=== PATIENT | male | born 1995 | race Caucasian/White ===

== ENCOUNTER 2023-10-16 13:56 | Emergency (ER) | payer OTHER ==
[2023-10-16] MEDS: methylPREDNISolone Sodium Succinate 125 MG/2 ML SDV IVPUSH ONE (15:44)
== END 2023-10-16 15:46 | disposition home or self-care (01) ==
LOC: JP.ED 13:56
DX: Z53.21 Procedure and treatment not carried out due to patient leaving prior to being seen by health care provider (principal)